=== PATIENT | male | born 1975 | race Caucasian/White ===

== ENCOUNTER 2017-05-28 09:26 | Emergency (ER) | payer SELFPAY ==
[2017-05-28 09:32] VITALS: BP 128/66; PULSE 80; TEMP 97.6; BMI 28.1
[2017-05-28 10:09] LABS: URINE APPEARANCE SLCLOUDY; URINE BILIRUBIN NEGATIVE (NEGATIVE); URINE BLOOD 2+ (NEGATIVE); URINE COLOR AMBER; URINE GLUCOSE (UA) NEGATIVE (NEGATIVE); URINE KETONE 1+ (NEGATIVE); URINE LEUK ESTERASE NEGATIVE (NEGATIVE); URINE NITRITE NEGATIVE (NEGATIVE)
--- NOTE | 2017-05-28 10:13 | PDOC ---
History of Present Illness - General Chief Complaint: Penile Drainage Stated Complaint: FEVER Time Seen by Provider: 05/28/17 09:59 History Source: Patient Exam Limitations: No Limitations - History of Present Illness Initial Comments: 05/28/17 11:42 Chief complaint: Outbreak of lesions on penis history of herpes History of present illness: Patient is a 41-year-old male with a history of genital herpes with no outbreak for 5 years however this past week he started to have outbreak of vesicles on his penis. With current eruption. Patient denies any dysuria, urgency, frequency, or any testicular pain. Patient denies any penile discharge. Patient also reports having a upper respiratory infection with a dry cough and slight sore throat for the last 2 days. Timing/Duration: getting worse (over the last one week lesions on penis ) Associated Symptoms: reports: cough, other (nasal congestion for 2 days ) Past History - Past Medical History Allergies/Adverse Reactions: Allergies Allergy/AdvReac Type Severity Reaction Status Date / Time No Known Allergies Allergy Verified 05/28/17 09:32 Home Medications: Ambulatory Orders Acyclovir [Zovirax -] 800 mg PO BID #6200 tablet 05/28/17 COPD: No Disorders: Yes (GENITAL HERPES) - Suicide/Smoking/Psychosocial Hx Smoking Status: No Smoking History: Never smoked Number of Cigarettes Smoked Daily: 0 Hx Alcohol Use: Yes (SOCIALLY) Drug/Substance Use Hx: No Substance Use Type: None Review of Systems - Review of Systems Able to Perform ROS?: Yes Constitutional: No: Symptoms Reported HEENTM: Yes: Nose Congestion Respiratory: Yes: Cough Cardiac (ROS): No: Symptoms Reported ABD/GI: No: Symptoms Reported : No: Symptoms Reported Musculoskeletal: No: Symptoms Reported Integumentary: Yes: Other (lesions on penis getting worse some scabbed, few new lesions ) *Physical Exam - Vital Signs Last Vital Signs Temp Pulse Resp BP Pulse Ox 97.6 F 80 20 128/66 99 05/28/17 09:28 05/28/17 09:28 05/28/17 09:28 05/28/17 09:28 05/28/17 09:28 - Physical Exam General Appearance: Yes: Appropriately Dressed HEENT: positive: Normal ENT Inspection Respiratory/Chest: positive: Lungs Clear, Normal Breath Sounds Cardiovascular: positive: Regular Rhythm, Regular Rate, S1, S2 Gastrointestinal/Abdominal: positive: Normal Bowel Sounds, Soft. negative: Tender, Organomegaly, Increased Bowel Sounds, Distended, Guarding, Rebound, Tenderness, Hernia, Mass, Hepatomegaly, Spleenomegaly Male Genitalia: positive: normal genitalia (circumised ), other (vesicular lesions penile shaft). negative: testicular tenderness, testicular mass, epididymus tender, inguinal hernia, hernia Musculoskeletal: positive: CVA Tenderness, CVA Tenderness (R), CVA Tenderness (L ) Medical Decision Making - Medical Decision Making 05/28/17 11:40 Patient is a 41-year-old male with a history of genital herpes with no outbreak for 5 years however this past week he started to have outbreak of vesicles on his penis. With current eruption. Patient denies any dysuria, urgency, frequency, or any testicular pain. Patient denies any penile discharge. Patient also reports having a upper respiratory infection with a dry cough and slight sore throat for the last 2 days. Patient denies nausea, fever, chills, or abdominal discomfort or any CVA tenderness. Patient denies any history of renal calculi. Patient reports having unprotected sex however Herpes genital recurrent unprotected sex hematuria pLAN: u/a urine C & S herpes genital culture RPR chlamydia/GC urine 05/28/17 11:40 Laboratory Tests 05/28/17 10:00 Urine Color Faina Urine Appearance Slcloudy Urine pH 5.0 Ur Specific Deweese 1.025 Urine Protein 1+ H Urine Glucose (UA) Negative Urine Ketones 1+ H Urine Blood 2+ H Urine Nitrite Negative Urine Bilirubin Negative Urine Urobilinogen 2.0 Ur Leukocyte Esterase Pending Urine WBC (Auto) 1 Urine RBC (Auto) 6 Urine Mucus Many 05/28/17 11:44 05/28/17 11:46 05/28/17 11:59 will treat for GC/chlamydia due to having unprotected sex Azithromycin ! gm po now rocephin 250 mg IM now Acyclovir 800 mg bid for 5 days may Follow up at [facility] Larisa 05/28/17 17:09 *DC/Admit/Observation/Transfer Diagnosis at time of Disposition: Unprotected sexual intercourse Herpes, genital Qualifiers: Herpes simplex infection site: penis Qualified Code(s): A60.01 - Herpesviral infection of penis - Discharge Dispostion Disposition: HOME Condition at time of disposition: Stable - Prescriptions Prescriptions: Acyclovir [Zovirax -] 800 mg PO BID #9496 tablet - Referrals Referrals: Sarbjit Crandall MD [Primary Care Provider] - - Patient Instructions Additional Instructions: You may follow up at [facility] clinic at [phone] on [address] [facility] You may call the lab lying in 3 days to find out results of today's testing Return to emergency room if symptoms worsen or any nausea, vomiting, back pain or any chills or fever Refrain from sexual relations please for 2 weeks and use condoms at all times Patient voiced understanding of discharge instructions - Post Discharge Activity
[2017-05-28 10:16] LABS: URINE PROTEIN 1+ (NEGATIVE)
[2017-05-28 10:23] LABS: URINE MUCUS MANY; URINE RBC 6 /hpf (0-3); URINE WBC 1 /hpf (3-5)
[2017-05-28] MEDS ORDERED: AZITHROMYCIN 250 MG TABLET PO ONE (11:52)
[2017-05-28] MEDS ORDERED: AZITHROMYCIN 250 MG TABLET ONE ×2 (11:58→12:00)
[2017-05-28 20:00] LABS: URINE LEUK ESTERASE Negative (NEGATIVE)
== END 2017-05-28 12:12 | disposition home or self-care (01) ==
LOC: JERFT 09:26
DX: A60.01 Herpesviral infection of penis (principal)
CPT/HCPCS: 36415; 81003; 81015; 86593; 87086; 87255; 87491; 87591; 99281-25

== ENCOUNTER 2018-05-09 18:39 | Emergency (ER) | payer SELFPAY ==
--- NOTE | 2018-05-09 18:45 | PDOC ---
Rapid Medical Evaluation Time Seen by Provider: 05/09/18 18:43 Medical Evaluation: Allergies Allergy/AdvReac Type Severity Reaction Status Date / Time No Known Allergies Allergy Verified 05/28/17 09:32 05/09/18 18:43 I have performed a brief in-person evaluation of this patient. The patient presents with a chief complaint of: left eye pain x2 days Pertinent physical exam findings: OS conjunctival erythema I have ordered the following: nothing The patient will proceed to the ED for further evaluation. Discharge Disposition - Diagnosis Irritation of left eye - Referrals - Patient Instructions - Post Discharge Activity
[2018-05-09 18:47] VITALS: BP 133/76; PULSE 56; TEMP 98.4; BMI 29.0
--- NOTE | 2018-05-09 19:35 | PDOC ---
History of Present Illness - General Chief Complaint: Eye Problem Stated Complaint: EYE PROBLEM Time Seen by Provider: 05/09/18 18:43 History Source: Patient Exam Limitations: No Limitations - History of Present Illness Initial Comments: 05/09/18 19:35 Patient came to emergency department for evaluation of sores to the lateral aspect of his left eye/eyelid. States was concerned about potential herpetic infection. 2 days ago felt and itchiness to his lateral left eye/eyelid which proceeded to be a sharp sensation and then an eruption of some vesicular lesions. Since that time has had some drainage that's clearish and whitish and has been tender. States eye is mildly injected and vision is slightly blurred and painful. No fevers, no history of shingles although has history of oral herpes but no well break for many years. Occurred: reports: other (3 days) Pain Location: reports: none Modifying Factors: improves with: None Loss of Consciousness: no loss of consciousness Associated Symptoms (Fall): headache Past History - Travel Traveled outside of the country in the last 30 days: No Close contact w/someone who was outside of country & ill: No - Past Medical History Allergies/Adverse Reactions: Allergies Allergy/AdvReac Type Severity Reaction Status Date / Time No Known Allergies Allergy Verified 05/28/17 09:32 Home Medications: Ambulatory Orders Acyclovir [Zovirax -] 800 mg PO DAILY #35 tablet 05/09/18 COPD: No Disorders: Yes (GENITAL HERPES) - Suicide/Smoking/Psychosocial Hx Smoking Status: No Smoking History: Never smoked Have you smoked in the past 12 months: No Number of Cigarettes Smoked Daily: 0 Hx Alcohol Use: No (Social) Drug/Substance Use Hx: No (MJ) Substance Use Type: None Trauma Specific PMHX - Complaint Specific PMHX Back Injury: No Neck Injury: No Review of Systems - Review of Systems Able to Perform ROS?: Yes Is the patient limited Latvian proficient: Yes Constitutional: Yes: Symptoms Reported, See HPI HEENTM: Yes: Symptoms Reported, See HPI, Eye Pain, Blurred Vision, Tearing. No : Nose Congestion, Mouth Swelling Respiratory: No: Symptoms reported Integumentary: No: Symptoms Reported All Other Systems: Reviewed and Negative *Physical Exam - Vital Signs Last Vital Signs Temp Pulse Resp BP Pulse Ox 98.4 F 56 L 20 133/76 99 05/09/18 18:43 05/09/18 18:43 05/09/18 18:43 05/09/18 18:43 05/09/18 18:43 - Physical Exam General Appearance: Yes: Nourished, Appropriately Dressed, Apparent Distress, Mild Distress HEENT: positive: ALEXANDRU, TMs Normal. negative: Pale Conjunctivae (erythema vesicular lesions noted to the lateral upper inner aspect eyelid , conjunctiva injected with mild photophobia) Neck: positive: Supple, Lymphadenopathy (R), Lymphadenopathy (L). 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 Case discussed/rn transitional Dr. Cordero who agrees will see pt tomorrow for further and treatment for potential ocular shingles. *DC/Admit/Observation/Transfer Diagnosis at time of Disposition: Herpes keratitis of left eye - Discharge Dispostion Disposition: HOME Condition at time of disposition: Stable Decision to Admit order: No - Referrals Referrals: Eulalia Cordero MD [Staff Physician] - - Patient Instructions Printed Discharge Instructions: DI for Shingles Additional Instructions: Rest, avoid rubbing eyes Wash hands, use lubricating eye drops as often as needed , wash hands after use Avoid contact with others until redness and discharge is gone from eyes. acyclovir 800 mg tablet every 4 hours (5 times a day)for one week Followup with ophthalmology / all Dr. Rascon office tomorrow after 1 PM to be seen tomorrow or Monday - Post Discharge Activity Forms/Work/School Notes: Back to Work
== END 2018-05-09 19:46 | disposition home or self-care (01) ==
LOC: JERFT 18:39
DX: H57.89 Other specified disorders of eye and adnexa (principal)
CPT/HCPCS: 99281-25